=== PATIENT | female | born 1975 | race Caucasian/White ===

== ENCOUNTER 2020-01-03 12:35 | Outpatient (CLI) | payer BC, SELFPAY ==
--- NOTE | 2020-01-03 | MR_ITS ---
WS: [id number] MRI BRAIN WITH HIGH-RESOLUTION IMAGING THROUGH THE INTERNAL AUDITORY CANALS WITHOUT AND WITH CONTRAST HISTORY: OTHER ALLERGIC RHINITIS, ANOSMIA, HEADACHE COMPARISON: None available. TECHNIQUE: Multiplanar, multisequence imaging is performed through the brain. Additional 3 mm imaging performed in multiple planes through the internal auditory canal. Postcontrast imaging with ml's of Prohance. No acute intracranial hemorrhage, midline shift, edema or mass effect. Ventricles and extra-axial spaces are normal. No inferior displacement of cerebellar tonsils. Clivus and pituitary gland are normal. Internal and external auditory canals: Unremarkable. Cranial nerves VII and VIII complexes: Unremarkable. No enhancement or mass. Cerebellopontine angles: Normal. Paranasal sinuses: Mild mucoperiosteal thickening RIGHT maxillary sinus. Mild LEFT septal deviation. Mastoid air cells: Normal. Calvarium and scalp: Normal. Visualized lower brule of Edwards and dural venous sinuses demonstrate no abnormality. MR/MR iac's wo/w con* [id number] IMPRESSION: 1. Normal internal auditory canals. 2. Mild RIGHT maxillary sinusitis.
== END 2020-01-03 12:36 | disposition home or self-care (01) ==
LOC: RADSHAW 12:37
PROVIDERS: PCP Nurse Practitioner; Visit Provider Specialist
DX: J30.89 Other allergic rhinitis (principal); R43.0 Anosmia; R51.9 Headache, unspecified; J32.0 Chronic maxillary sinusitis
CPT/HCPCS: 70553; A9579

== ENCOUNTER 2022-06-13 15:17 | Outpatient (CLI) | payer BC, SELFPAY ==
--- NOTE | 2022-06-13 15:27 | MM_ITS ---
WS: [id number] BILATERAL SCREENING DIGITAL TOMOSYNTHESIS MAMMOGRAM WITH CAD HISTORY: SCREEN COMPARISON: None available. Bilateral CC and MLO views with tomosynthesis and synthetic mammography submitted. Computer aided det ection analyzed. Limited evaluation due to difficulty obtaining lateral projections of each breast. Breast composition: There are scattered areas of fibroglandular density. No suspicious masses, microc alcifications or architectural distortion. Benign calcifications RIGHT breast. MM/[place] [id number] IMPRESSION: BI-RADS: 2-Benign FOLLOW UP: 1 Year Follow-up
== END 2022-06-13 15:18 | disposition home or self-care (01) ==
LOC: RAD 15:21
PROVIDERS: PCP Nurse Practitioner Family; Visit Provider Nurse Practitioner Family
DX: Z12.31 Encounter for screening mammogram for malignant neoplasm of breast (principal)
CPT/HCPCS: 77063; 77067

== ENCOUNTER 2023-06-16 15:29 | Outpatient (CLI) | payer BC, SELFPAY ==
--- NOTE | 2023-06-16 15:48 | US_ITS ---
WS: [id number] US pelv w/transvag [id number] HISTORY: PELVIC PAIN AND HEAVY MENSES COMPARISON: 03/09/2013 Uterus: 11.0 cm x 7.0 cm x 5.0 cm. Mildly enlarged anteverted uterus. No fibroid or mass identified. Several small nabothian cysts withi n the cervix. Endometrium: 0.9 cm. Normal size endometrium. No mass identified. Right ovary: 4.4 cm x 4.2 cm x 1.6 cm. RIGHT ovary is slightly enlarged. There is a small follicle as sociated with the ovary. Left ovary: 3.8 cm x 2.6 cm x 3.3 cm. Normal size and vascularity, no cystic or solid masses. No free fluid in the cul-de-sac. IMPRESSION: 1. Normal size endometrium. No mass or abnormality identified by ultrasound. 2. Mildly enlarged uterus. No fibroid.
== END 2023-06-16 15:30 | disposition home or self-care (01) ==
LOC: RAD 15:30
PROVIDERS: PCP Nurse Practitioner Family; Visit Provider Nurse Practitioner Family
DX: R10.2 Pelvic and perineal pain (principal); N92.0 Excessive and frequent menstruation with regular cycle; N85.2 Hypertrophy of uterus
CPT/HCPCS: 76830; 76856

== ENCOUNTER 2023-06-17 13:53 | Outpatient (CLI) | payer BC, SELFPAY ==
--- NOTE | 2023-06-17 13:57 | MM_ITS ---
WS: [id number] BILATERAL 3D TOMOSYNTHESIS DIGITAL SCREENING MAMMOGRAPHY WITH CAD CLINICAL INFORMATION: SCREENING HISTORY: Screening mammogram. No current complaints. COMPARISON: 2022 TECHNIQUE: Bilateral CC and MLO views. FINDINGS: Scattered fibroglandular densities bilaterally. No suspicious focal mass, asymmetry, calcifications, or architectural distortion. No evidence of malignancy. Incidental punctate and lucent centered calci fications. IMPRESSION: MM/[place] [id number] BI-RADS: 2-Benign FOLLOW UP: 1 Year Follow-up Recommend return to annual screening mammography.
== END 2023-06-17 13:54 | disposition home or self-care (01) ==
LOC: RAD 13:53
PROVIDERS: PCP Nurse Practitioner Family; Visit Provider Nurse Practitioner Family
DX: Z12.31 Encounter for screening mammogram for malignant neoplasm of breast (principal)
CPT/HCPCS: 77063; 77067

== ENCOUNTER 2023-07-29 10:02 | Day surgery (SDC) | payer BC, SELFPAY ==
[2023-07-29 10:27] VITALS: BP 143/64; PULSE 78; RESP 18; TEMP 36.2; O2SAT 94; BMI 40.2
[2023-07-29 10:37] LABS: OR HCG Qualitative Urine Negative (Negative)
[2023-07-29] MEDS: sodium chloride 0.9% 1,000 ML 30 ML IV (10:45)
--- NOTE | 2023-07-29 11:37 | PM.HP ---
Providers/Chief Complaint Primary Care Provider: AVNI Sharma Chief Complaint: Z12.11 History of Present Illness Cinthia Tejada is a 47 year old female Review of Systems General: Reports: 10 or more systems reviewed and unremarkable except in HPI and below Medications/Allergies Home Medications Medication Instructions Recorded Confirmed Last Taken Type levothyroxine 125 mcg capsule 125 mcg PO DAILY 05/18/19 07/29/23 07/29/23 History metoprolol succinate 50 mg 50 mg PO DAILY 05/18/19 07/29/23 07/29/23 History tablet,extended release 24 hr paroxetine HCl 40 mg tablet 40 mg PO DAILY 05/18/19 07/29/23 07/27/23 History atorvastatin 10 mg tablet 10 mg PO DAILY 04/26/22 07/29/23 07/27/23 History clobetasol 0.05 % topical ointment 1 applic topical BID 2 weeks #60 04/26/22 07/29/23 07/26/23 Rx grams hydroxyzine HCl 25 mg tablet 25 mg PO BID PRN Anxiety 04/26/22 07/29/23 Unknown History black cohosh 540 mg capsule 540 mg PO DAILY 07/27/23 07/29/23 07/27/23 History eobbpvst-kda-nkkl-FA-Ca carb-vit K 1 tab PO DAILY 07/27/23 07/29/23 07/29/23 History 18 mg iron-400 mcg-500 mg tablet (One-A-Day Womens Formula) turmeric 400 mg capsule 500 mg PO DAILY 07/27/23 07/29/23 07/27/23 History Allergies Allergy/AdvReac Type Severity Reaction Status Date / Time No Known Allergies Allergy Verified 07/29/23 10:25 PFSH Acute PFSH: Medical History (Updated 07/29/23 @ 11:38 by Chuck Odom DO) History of colon polyps Family History (Updated 07/08/23 @ 14:43 by Celina Aaron LPN) Father Diabetes Grandmother Ovarian cancer Denies family history of Colon cancer Prostate cancer Heart disease Hypercholesteremia Breast cancer Hypertension Uterine cancer Thyroid disease Stroke Social History (Updated 07/08/23 @ 09:49 by Celina Aaron LPN) Smoking and tobacco/nicotine status: never used tobacco/nicotine Alcohol intake: current Alcohol intake frequency: holidays/special occasions only Substance/Drug Use: never Female Reproductive History: Date of last menstrual period: 07/20/23 Vitals/I&O/Wt Last Vital Signs Temp 97.1 F L 07/29/23 10:27 Pulse 78 07/29/23 10:27 Resp 18 07/29/23 10:27 BP 143/64 07/29/23 10:27 Pulse Ox 94 07/29/23 10:27 O2 Del Method Room Air 07/29/23 10:27 Weight last 48 hrs Weight 242 lb A&P Assessment and plan (1) Colon cancer screening: Plan Colonoscopy Attestations Medical Necessity Statement*: Home Coding Level of Care Code Acute Code for Chg Fwd Diagnoses Colon cancer screening Z12.11
--- NOTE | 2023-07-29 11:46 | P.ANESASSM_ITS ---
Pre-Anesthetic Assessment Height/Weight: Height 1.65 m Weight 109.769 kg Temp Pulse Resp BP Pulse Ox O2 Del Method 97.1 F L 78 18 143/64 94 Room Air 07/29/23 10:27 07/29/23 10:27 07/29/23 10:27 07/29/23 10:27 07/29/23 10:27 07/29/23 10:27 Preop Diagnosis: screening Operation Date: 07/29/23 11:30 Proposed Procedures p Colonoscopy(Not Applicable) - Chuck Odom DO Familial anesthetic complications: none Last intake: Intake Last Liquid Date 07/28/23 Last Liquid Time 22:30 Last Solid Date 07/27/23 Last Solid Time 18:00 Social Alcohol (occasionally) and No tobacco Exam alert, oriented x 3, clear to auscultation bilaterally and regular rate & rhythm Airway Submandibular: within normal limits Cervical ROM: within normal limits Mallampati: Class III Dentition: false (upper and lower) Pulmonary None reported CV/HEM Palpitations None reported Hepatic chronic elevated liver enzymes per patient no diagnosis. GI Gastroesophageal Reflux Disease Metabolic Diabetes Mellitus (borderline diet controlled), Hyperlipidemia and Thyroid Disease [facility] [place] None reported Neuropsych Anxiety Anesthetic Plan ASA status: 2 Anesthesia: MAC Medications/Allergies Home Medications Medication Instructions Recorded Confirmed Last Taken Type levothyroxine 125 mcg capsule 125 mcg PO DAILY 05/18/19 07/29/23 07/29/23 History metoprolol succinate 50 mg 50 mg PO DAILY 05/18/19 07/29/23 07/29/23 History tablet,extended release 24 hr paroxetine HCl 40 mg tablet 40 mg PO DAILY 05/18/19 07/29/23 07/27/23 History atorvastatin 10 mg tablet 10 mg PO DAILY 04/26/22 07/29/23 07/27/23 History clobetasol 0.05 % topical ointment 1 applic topical BID 2 weeks #60 04/26/22 07/29/23 07/26/23 Rx grams hydroxyzine HCl 25 mg tablet 25 mg PO BID PRN Anxiety 04/26/22 07/29/23 Unknown History black cohosh 540 mg capsule 540 mg PO DAILY 07/27/23 07/29/23 07/27/23 History efdkwpfb-jho-rhqz-FA-Ca carb-vit K 1 tab PO DAILY 07/27/23 07/29/23 07/29/23 History 18 mg iron-400 mcg-500 mg tablet (One-A-Day Womens Formula) turmeric 400 mg capsule 500 mg PO DAILY 07/27/23 07/29/23 07/27/23 History Allergies Allergy/AdvReac Type Severity Reaction Status Date / Time No Known Allergies Allergy Verified 07/29/23 10:25 Current Medications Generic Name Dose Route Start Last Admin Trade Name Freq PRN Reason Stop Dose Admin Sodium Chloride 1,000 mls @ 30 mls/hr 07/29/23 10:30 07/29/23 10:45 Sodium Chloride 0.9% IV 07/30/23 10:29 30 mls/hr .Q24H ARUNA Administration PFSH Anesthesia Medical History (Updated 07/29/23 @ 11:38 by Chuck Odom DO) History of colon polyps Family History (Updated 07/08/23 @ 14:43 by Celina Aaron LPN) Father Diabetes Grandmother Ovarian cancer Denies family history of Colon cancer Prostate cancer Heart disease Hypercholesteremia Breast cancer Hypertension Uterine cancer Thyroid disease Stroke Social History (Updated 07/08/23 @ 09:49 by Celina Aaron LPN) Smoking and tobacco/nicotine status: never used tobacco/nicotine Alcohol intake: current Alcohol intake frequency: holidays/special occasions only Substance/Drug Use: never Female Reproductive History Date of last menstrual period: 07/20/23 Data Anesthesia Cardiac Studies: 2 No Data to Display
[2023-07-29 12:18] VITALS: BP 106/60; PULSE 70; RESP 14; TEMP 36.5; O2SAT 98
[2023-07-29 12:33] VITALS: BP 116/75; PULSE 78; RESP 18; O2SAT 96
--- NOTE | 2023-07-29 12:50 | ANE.PACU2 ---
Inpatient post-anesthesia follow up: Airway intact: Yes Vital signs: Temperature 97.7 F Pulse Rate 78 Respiratory Rate 18 Blood Pressure 116/75 Pulse Oximetry 96 Oxygen Delivery Me thod Room Air Oxygen Flow Rate 2 Fraction of Inspir ed Oxygen Hydration adequate: Yes Nausea and vomiting: No Pain level: 1 Mental status: Baseline
== END 2023-07-29 12:50 | disposition home or self-care (01) ==
PROVIDERS: Anesthesiology; PCP Nurse Practitioner Family; Visit Provider Surgery
PROC: 0DJD8ZZ Inspection of Lower Intestinal Tract, Via Natural or Artificial Opening Endoscopic (ICD-10-PCS; CPT 45378; principal; 2023-07-29 11:30)
DX: Z12.11 Encounter for screening for malignant neoplasm of colon (principal); K64.8 Other hemorrhoids
CPT/HCPCS: 45378; 81025; J2704; J7030

== ENCOUNTER 2023-08-12 07:56 | Outpatient (CLI) | payer BC, SELFPAY ==
[2023-08-12 08:49] LABS: Alanine Aminotransferase 92 U/L (0-33); Albumin Level 4.7 g/dL (3.5-5.2); Alkaline Phosphatase 99 U/L (35-105); Aspartate Amino Transferase 71 U/L (0-32); Blood Urea Nitrogen 9 mg/dL (6-20); Calcium 9.9 mg/dL (8.5-10.5); Carbon Dioxide 26 mmol/L (22-29); Chloride 103 mmol/L (98-107); Globulin 2.6 g/dL (1.3-4.6); Glomerular Filtration Rate 133.4 mL/min (90-130); Glucose 122 mg/dL (65-115); Osmolality Calculated 288 mOsm/kg (285-295); Sodium 139 mmol/L (136-145); Total Bilirubin 0.7 mg/dL (0.15-1.2); Total Protein 7.3 g/dL (6.6-8.7)
[2023-08-12 08:50] LABS: Calcium 10.1 mg/dL (8.5-10.5); Parathyroid Hormone 124.4 pg/mL (15-65)
[2023-08-12 10:16] LABS: Cortisol Random 0.82 ug/dL (2.47-19.5)
[2023-08-12 10:57] LABS: Free T4 Free Thyroxine 1.14 ng/dL (0.82-1.77)
== END 2023-08-12 07:57 | disposition home or self-care (01) ==
LOC: LAB 07:58
PROVIDERS: PCP Nurse Practitioner Family; Visit Provider Internal Medicine
DX: R79.89 Other specified abnormal findings of blood chemistry (principal); E55.9 Vitamin D deficiency, unspecified; E03.9 Hypothyroidism, unspecified
CPT/HCPCS: 36415; 80053; 82310; 82533; 83970; 84439; 84443

== ENCOUNTER 2023-08-13 06:44 | Day surgery (SDC) | payer BC, SELFPAY ==
--- NOTE | 2023-08-12 13:55 | W.PM.OPSFHP ---
Same Day Surgery H&P Indication for Procedure/HPI DATE OF PROCEDURE: August 13, 2023 CHIEF COMPLAINT/INDICATIONFOR SURGICAL PROCEDURE: abnormal uterine bleeding PREOP DIAGNOSIS: abnormal uterine bleeding PLANNED PROCEDURE: Operation Date: 08/13/23 09:45 Proposed Procedures p Hysteroscopy Hysteroscopy w/ Endometrial Sampling 62146, N93.9(Not Applicable) - Harman Tapia MD s Poylpectomy(Not Applicable) - Harman Tapia MD 47 y.o. with abnormal uterine bleeding Medications/Allergies* Home Medications Medication Instructions Recorded Confirmed Type levothyroxine 125 mcg capsule 125 mcg PO DAILY 05/18/19 08/12/23 History metoprolol succinate 50 mg 50 mg PO DAILY 05/18/19 08/12/23 History tablet,extended release 24 hr paroxetine HCl 40 mg tablet 40 mg PO DAILY 05/18/19 08/12/23 History atorvastatin 10 mg tablet 10 mg PO DAILY 04/26/22 08/12/23 History hydroxyzine HCl 25 mg tablet 25 mg PO BID PRN Anxiety 04/26/22 08/12/23 History xuceoccr-qka-elnp-FA-Ca carb-vit K 1 tab PO DAILY 07/27/23 08/12/23 History 18 mg iron-400 mcg-500 mg tablet (One-A-Day Womens Formula) cetirizine 10 mg capsule (Zyrtec) 10 mg PO DAILY 08/05/23 08/12/23 History Allergies/Adverse Reactions Allergy/AdvReac Type Severity Reaction Status Date / Time No Known Allergies Allergy Verified 08/05/23 08:16 Pertinent History/Comorbid Conditions* Medical History (Updated 08/05/23 @ 08:42 by Yossi Figueroa MD) History of colon polyps Family History (Updated 07/08/23 @ 14:43 by Celina Aaron LPN) Ovarian cancer Grandmother Diabetes Father Denies family history of Colon cancer Prostate cancer Heart disease Hypercholesteremia Breast cancer Hypertension Uterine cancer Thyroid disease Stroke Social History Smoking and tobacco/nicotine status: never used tobacco/nicotine Alcohol intake: current Alcohol intake frequency: holidays/special occasions only Substance/Drug Use: never Pertinent Exam Findings alert, oriented x 3, clear to auscultation bilaterally and regular rate & rhythm Recommendations Surgery/Procedure today Coding Level of Care Code Acute Code for Chg Fwd Time Spent (min) 20
[2023-08-13] VITALS (9 sets, daily range): BP systolic 112–135; BP diastolic 67–96; PULSE 62–90; RESP 16–20; TEMP 36.2–36.8; O2SAT 95–97; BMI 40.2
--- NOTE | 2023-08-13 08:10 | W.PM.OPSUD ---
Surgery/Procedure H&P Update DATE OF PROCEDURE: August 13, 2023 DATE H&P PERFORMED: 08/12/23 H&P UPDATE INFORMATION: I have reviewed H&P completed within last 30 days, I have examined patient prior to procedure and No changes to prior documentation PREOP DIAGNOSIS: abnormal uterine bleeding PLANNED PROCEDURE: Operation Date: 08/13/23 08:25 Proposed Procedures p Hysteroscopy Hysteroscopy w/ Endometrial Sampling 55171, N93.9(Not Applicable) - Harman Tapia MD s Poylpectomy(Not Applicable) - Harman Tapia MD
[2023-08-13 08:18] LABS: OR HCG Qualitative Urine Negative (Negative)
[2023-08-13 08:41] LABS: Glucose Point of Care 95 mg/dL (70-110)
[2023-08-13] MEDS: sodium chloride 0.9% 1,000 ML 30 ML IV (08:44)
--- NOTE | 2023-08-13 08:46 | P.ANESASSM_ITS ---
Pre-Anesthetic Assessment Height/Weight: Height 1.65 m Weight 109.769 kg O2 Del Method Room Air 08/13/23 08:23 Preop Diagnosis: abnormal uterine bleeding Operation Date: 08/13/23 08:25 Proposed Procedures p Hysteroscopy Hysteroscopy w/ Endometrial Sampling 02829, N93.9(Not Applicable) - Harman Tapia MD s Poylpectomy(Not Applicable) - Harman Tapia MD Familial anesthetic complications: None Was Beta Annie taken within 24 hours: N/A Was Clonidine taken within 24 hours: N/A Last intake: Intake Last Liquid Date 08/12/23 Last Liquid Time 20:30 Last Solid Date 08/12/23 Last Solid Time 17:00 Social No alcohol and No tobacco Exam alert, oriented x 3, clear to auscultation bilaterally and regular rate & rhythm Airway Mallampati: Class I Dentition: false CV/HEM Palpitations Metabolic Diabetes Mellitus, Hyperlipidemia, Morbid Obesity and Thyroid Disease Anesthetic Plan ASA status: 3 Anesthesia: General Risk of > 500 ml blood loss (7ml/kg in children): No Medications/Allergies Home Medications Medication Instructions Recorded Confirmed Last Taken Type levothyroxine 125 mcg capsule 125 mcg PO DAILY 05/18/19 08/12/23 08/13/23 History metoprolol succinate 50 mg 50 mg PO DAILY 05/18/19 08/12/23 08/13/23 History tablet,extended release 24 hr paroxetine HCl 40 mg tablet 40 mg PO DAILY 05/18/19 08/12/23 08/12/23 History atorvastatin 10 mg tablet 10 mg PO DAILY 04/26/22 08/12/23 08/12/23 History clobetasol 0.05 % topical ointment 1 applic topical BID 2 weeks #60 04/26/22 08/12/23 08/12/23 Rx grams hydroxyzine HCl 25 mg tablet 25 mg PO BID PRN Anxiety 04/26/22 08/12/23 Unknown History lzsrqvxe-nyq-azav-FA-Ca carb-vit K 1 tab PO DAILY 07/27/23 08/12/23 07/29/23 Hi story 18 mg iron-400 mcg-500 mg tablet (One-A-Day Womens Formula) cetirizine 10 mg capsule (Zyrtec) 10 mg PO DAILY 08/05/23 08/12/23 08/13/23 History liraglutide 0.6 mg/0.1 mL (18 mg/3 See Rx Instructions SUBCUT 08/05/23 08/12/23 Unknown Rx mL) subcutaneous pen injector .COMPLEX #9 mL (Victoza 3-Calvin) Allergies Allergy/AdvReac Type Severity Reaction Status Date / Time No Known Allergies Allergy Verified 08/05/23 08:16 Current Medications Generic Name Dose Route Start Last Admin Trade Name Freq PRN Reason Stop Dose Admin Sodium Chloride 1,000 mls @ 30 mls/hr 08/13/23 07:00 08/13/23 08:44 Sodium Chloride 0.9% IV 08/14/23 06:59 30 mls/hr .Q24H ARUNA Administration PFSH Anesthesia Medical History History of colon polyps Family History Father Diabetes Grandmother Ovarian cancer Denies family history of Colon cancer Prostate cancer Heart disease Hypercholesteremia Breast cancer Hypertension Uterine cancer Thyroid disease Stroke Social History Smoking and tobacco/nicotine status: never used tobacco/nicotine Alcohol intake: current Alcohol intake frequency: holidays/special occasions only Substance/Drug Use: never Female Reproductive History Date of last menstrual period: 07/22/23 Data Anesthesia Cardiac Studies: No Data to Display
--- NOTE | 2023-08-13 09:45 | PM.OP ---
Operative Report Date of procedure: August 13, 2023 Pre-op diagnosis: abnormal uterine bleeding Post-op diagnosis: same Post-op findings: normal endometrial cavity No polyps / fibroids Small amount of endometrial tissue Procedure done: hysteroscopy curettage of uterus Implants: none Specimens removed/disposition: endometrial curettings, sent to pathology Surgeon: Harman Tapia MD Anesthesia: MAC Estimated blood loss (mL): 0 Complications: none Findings: see above Condition: stable Disposition: PACU Brief History: 47 y.o. with abnormal uterine bleeding Procedure: Informed consent signed. Patient was taken to the operating room. Anesthesia was induced. Patient was placed in dorsolithotomy position, prepped and draped for hysteroscopy. A bivalve speculum was placed in the vagina. The anterior lip of the cervix was grasped with a sharp-toothed tenaculum. The cervix was serially dilated with Hegar dilators. . A hysteroscope was placed into the endometrial cavity. The endometrial cavity was seen to be normal. There were no polyps or fibroids. There was a small amount of endometrial tissue. The hysteroscope was then removed. Endometrial curettage was done with a sharp curette. Endometrial tissue was sent to pathology. The sharp-toothed tenaculum was removed. There was no bleeding from the endometrial cavity or cervix. The patient was then placed supine and awakened and taken to the PACU. Postop condition: stable EBL: none Sponge and instruments counts were normal x 2 Complications: none
== END 2023-08-13 11:14 | disposition home or self-care (01) ==
PROVIDERS: PCP Nurse Practitioner Family; Visit Provider Obstetrics & Gynecology
PROC: 0UJD8ZZ Inspection of Uterus and Cervix, Via Natural or Artificial Opening Endoscopic (ICD-10-PCS; CPT 58555; principal; 2023-08-13 08:15)
DX: N93.9 Abnormal uterine and vaginal bleeding, unspecified (principal); E11.9 Type 2 diabetes mellitus without complications; E78.5 Hyperlipidemia, unspecified; E66.01 Morbid (severe) obesity due to excess calories; Z68.41 Body mass index [BMI] 40.0-44.9, adult
CPT/HCPCS: 58558; 36416; 81025; 82962; 88305; J1100; J1200; J2250; J2405; J2704; J3010; J7030

== ENCOUNTER 2023-10-30 06:01 | Outpatient (CLI) | payer BC, SELFPAY ==
[2023-10-30 06:58] LABS: Calcium 9.9 mg/dL (8.5-10.5)
[2023-10-30 07:04] LABS: Parathyroid Hormone 112.1 pg/mL (15-65)
[2023-10-30 07:05] LABS: Alanine Aminotransferase 90 U/L (0-33); Albumin Level 4.4 g/dL (3.5-5.2); Alkaline Phosphatase 94 U/L (35-105); Anion Gap 14.3 (5-19); Aspartate Amino Transferase 50 U/L (0-32); Blood Urea Nitrogen 12 mg/dL (6-20); Calcium 9.7 mg/dL (8.5-10.5); Carbon Dioxide 25 mmol/L (22-29); Chloride 105 mmol/L (98-107); Free T4 Free Thyroxine 1.15 ng/dL (0.82-1.77); Globulin 2.1 g/dL (1.3-4.6); Glomerular Filtration Rate 133.4 mL/min (90-130); Glucose 115 mg/dL (65-115); Osmolality Calculated 291 mOsm/kg (285-295); Potassium 4.3 mmol/L (3.5-5.1); Sodium 140 mmol/L (136-145); Thyroid Stimulating Hormone 2.07 uIU/mL (0.27-4.20); Total Bilirubin 0.7 mg/dL (0.15-1.2); Total Protein 6.5 g/dL (6.6-8.7)
[2023-10-30 07:47] LABS: 25 Hydroxy Vitamin D 23 ng/mL (30-100)
== END 2023-10-30 06:02 | disposition home or self-care (01) ==
PROVIDERS: PCP Nurse Practitioner Family; Visit Provider Internal Medicine
DX: R79.89 Other specified abnormal findings of blood chemistry (principal); E55.9 Vitamin D deficiency, unspecified; E03.9 Hypothyroidism, unspecified
CPT/HCPCS: 36415; 80053; 82306; 82310; 83970; 84439; 84443

== ENCOUNTER 2023-12-29 06:10 | Outpatient (CLI) | payer BC, SELFPAY ==
[2023-12-29 07:36] LABS: Calcium 9.8 mg/dL (8.5-10.5); Estmated Average Glucose 105; Hemoglobin A1C 5.3 % (4.0-6.0)
[2023-12-29 07:37] LABS: Creatinine Urine, Random 264 mg/dL (28-217); Microalbum Creatinine Ratio Ur 11 mg/dL (0-20); Microalbumin Random Urine 3 ug/dL (0-20)
[2023-12-29 07:47] LABS: Alanine Aminotransferase 76 U/L (0-33); Albumin Level 4.2 g/dL (3.5-5.2); Alkaline Phosphatase 93 U/L (35-105); Aspartate Amino Transferase 41 U/L (0-32); Blood Urea Nitrogen 11 mg/dL (6-20); Calcium 9.5 mg/dL (8.5-10.5); Carbon Dioxide 24 mmol/L (22-29); Chloride 104 mmol/L (98-107); Chol HDL Ratio 5.09 mg/dL (0.0-4.40); Cholesterol 239 mg/dL (0-200); Free T4 Free Thyroxine 0.99 ng/dL (0.82-1.77); Globulin 1.9 g/dL (1.3-4.6); Glomerular Filtration Rate 107.6 mL/min (90-130); Glucose 88 mg/dL (65-115); HDL Cholesterol 47 mg/dL (60-100); LDL Cholesterol Calculated 125 mg/dL (50-129); LDL HDL Ratio 2.66 RATIO (0.00-3.22); Osmolality Calculated 285 mOsm/kg (285-295); Sodium 138 mmol/L (136-145); Thyroid Stimulating Hormone 3.49 uIU/mL (0.27-4.20); Total Bilirubin 0.4 mg/dL (0.15-1.2); Total Protein 6.1 g/dL (6.6-8.7); Triglycerides 337 mg/dL (0-150)
[2023-12-29 08:24] LABS: Anion Gap 14.3 (5-19); Potassium 4.3 mmol/L (3.5-5.1)
[2023-12-29 08:45] LABS: Parathyroid Hormone 95.5 pg/mL (15-65)
[2023-12-29 08:54] LABS: 25 Hydroxy Vitamin D 38 ng/mL (30-100)
== END 2023-12-29 06:11 | disposition home or self-care (01) ==
LOC: LAB 06:11
PROVIDERS: PCP Nurse Practitioner Family; Visit Provider Internal Medicine
DX: R73.03 Prediabetes (principal); R79.89 Other specified abnormal findings of blood chemistry; E55.9 Vitamin D deficiency, unspecified; E03.9 Hypothyroidism, unspecified
CPT/HCPCS: 36415; 80053; 80061; 82044; 82306; 82310; 83036; 83970; 84439; 84443

== ENCOUNTER 2024-05-31 08:00 | Outpatient (CLI) | payer BC, SELFPAY ==
[2024-05-31 08:30] LABS: HF Add Manual Diff No
[2024-05-31 08:32] LABS: Basophils % 0.2 %; Hematocrit 47.5 % (36-47); Lymphocytes # 1.7 10^3/uL (0.8-4.8); Lymphocytes % 31.4 %; Mean Corpuscular HGB Conc 33.3 g/dL (30-55); Mean Corpuscular Hemoglobin 28.9 pg (27-33); Mean Corpuscular Volume 86.8 fl (85-98); Mean Platelet Volume 11.2 fL (7.4-10.4); Monocytes # 0.4 10^3/uL (0.2-0.9); Neutrophils # 3.25 10^3/uL (1.8-7.7); Neutrophils % 60.2 %; Nucleated Red Blood Cells % 0 %; Platelet Count 153 10^3/cmm (157-399); Red Blood Count 5.47 10^6/uL (3.85-5.65); Red Cell Distribution Width 12.3 % (12.1-15.1); White Blood Count 5.39 10^3/uL (3.29-11.43)
[2024-05-31 08:44] LABS: Estmated Average Glucose 103; Hemoglobin A1C 5.2 % (4.0-6.0)
[2024-05-31 09:02] LABS: Creatinine Urine, Random 254 mg/dL (28-217); Microalbum Creatinine Ratio Ur 24 mg/dL (0-20); Microalbumin Random Urine 6 ug/dL (0-20)
[2024-05-31 09:06] LABS: Calcium 10.2 mg/dL (8.5-10.5); Free T4 Free Thyroxine 1.08 ng/dL (0.82-1.77); Parathyroid Hormone 97.5 pg/mL (15-65)
[2024-05-31 09:16] LABS: 25 Hydroxy Vitamin D 48 ng/mL (30-100); Alanine Aminotransferase 46 U/L (0-33); Albumin Level 4.5 g/dL (3.5-5.2); Alkaline Phosphatase 93 U/L (35-105); Anion Gap 12.3 (5-19); Aspartate Amino Transferase 31 U/L (0-32); Blood Urea Nitrogen 10 mg/dL (6-20); Calcium 10.2 mg/dL (8.5-10.5); Carbon Dioxide 27 mmol/L (22-29); Chloride 105 mmol/L (98-107); Chol HDL Ratio 4.82 mg/dL (0.0-4.40); Cholesterol 294 mg/dL (0-200); Globulin 1.8 g/dL (1.3-4.6); Glomerular Filtration Rate 132.8 mL/min (90-130); Glucose 86 mg/dL (65-115); HDL Cholesterol 61 mg/dL (60-100); LDL Cholesterol Calculated 192 mg/dL (50-129); LDL HDL Ratio 3.15 RATIO (0.00-3.22); Osmolality Calculated 288 mOsm/kg (285-295); Potassium 4.3 mmol/L (3.5-5.1); Sodium 140 mmol/L (136-145); Total Bilirubin 0.7 mg/dL (0.15-1.2); Total Protein 6.3 g/dL (6.6-8.7); Triglycerides 204 mg/dL (0-150)
== END 2024-05-31 08:01 | disposition home or self-care (01) ==
PROVIDERS: Absent Provider Internal Medicine; PCP Nurse Practitioner Family; Visit Provider Dermatology
DX: R73.03 Prediabetes (principal); R79.89 Other specified abnormal findings of blood chemistry; E55.9 Vitamin D deficiency, unspecified; E03.9 Hypothyroidism, unspecified; Z01.89 Encounter for other specified special examinations
CPT/HCPCS: 36415; 82044; 82310; 83970; 84439

== ENCOUNTER 2024-08-24 06:09 | Outpatient (CLI) | payer BC, SELFPAY ==
[2024-08-24 08:07] LABS: Free T4 Free Thyroxine 1.31 ng/dL (0.82-1.77)
[2024-08-24 11:30] LABS: Calcium 10.2 mg/dL (8.5-10.5)
== END 2024-08-24 06:10 | disposition home or self-care (01) ==
PROVIDERS: PCP Nurse Practitioner Family; Visit Provider Internal Medicine
DX: E03.9 Hypothyroidism, unspecified (principal); E55.9 Vitamin D deficiency, unspecified; R79.89 Other specified abnormal findings of blood chemistry; R73.03 Prediabetes
CPT/HCPCS: 36415; 82310; 83970; 84439; 84443

== ENCOUNTER 2024-10-25 07:05 | Outpatient (CLI) | payer BC, SELFPAY ==
[2024-10-25 08:41] LABS: Alanine Aminotransferase 53 U/L (0-33); Albumin Level 4.5 g/dL (3.5-5.2); Alkaline Phosphatase 101 U/L (35-105); Anion Gap 15.2 (5-19); Aspartate Amino Transferase 43 U/L (0-32); Blood Urea Nitrogen 12 mg/dL (6-20); Calcium 10.3 mg/dL (8.5-10.5); Carbon Dioxide 24 mmol/L (22-29); Chloride 104 mmol/L (98-107); Cholesterol 335 mg/dL (0-200); Free T4 Free Thyroxine 0.95 ng/dL (0.82-1.77); Globulin 2.4 g/dL (1.3-4.6); Glucose 110 mg/dL (65-115); HDL Cholesterol 64 mg/dL (60-100); Osmolality Calculated 288 mOsm/kg (285-295); Potassium 4.2 mmol/L (3.5-5.1); Sodium 139 mmol/L (136-145); Thyroid Stimulating Hormone 3.63 uIU/mL (0.27-4.20); Total Protein 6.9 g/dL (6.6-8.7); Triglycerides 315 mg/dL (0-150)
[2024-10-25 09:04] LABS: Estmated Average Glucose 114; Hemoglobin A1C 5.6 % (4.0-6.0)
== END 2024-10-25 07:06 | disposition home or self-care (01) ==
PROVIDERS: PCP Nurse Practitioner Family; Visit Provider Internal Medicine
DX: E03.9 Hypothyroidism, unspecified (principal); E55.9 Vitamin D deficiency, unspecified; R79.89 Other specified abnormal findings of blood chemistry; R73.03 Prediabetes
CPT/HCPCS: 36415; 80053; 80061; 82044; 83036; 84439; 84443

== ENCOUNTER 2024-10-29 07:58 | Outpatient (CLI) | payer BC, SELFPAY ==
[2024-10-29 10:49] LABS: Creatinine 24 Hour Urine 1741.5 mg/dL (601-1689); Total Volume Urine 2150 ml
[2024-10-29 11:09] LABS: Calcium 24 Hour Urine 862 mg/24hr (100-300); Total Volume Urine 2150 ml; Urine Calcium Result 40.1 mg/dL
== END 2024-10-29 07:59 | disposition home or self-care (01) ==
LOC: LAB 08:00
PROVIDERS: Internal Medicine; PCP Nurse Practitioner Family; Visit Provider Chiropractor
DX: E03.9 Hypothyroidism, unspecified (principal); E55.9 Vitamin D deficiency, unspecified; R79.89 Other specified abnormal findings of blood chemistry; R73.03 Prediabetes
CPT/HCPCS: 82340; 82570

== ENCOUNTER → 2024-11-01 10:53 | Outpatient (BNVA) | payer BC, SELFPAY | PROVIDERS: PCP Nurse Practitioner Family; Referring Provider Nurse Practitioner Family; Visit Provider Internal Medicine Cardiovascular Disease | DX: R00.0 Tachycardia, unspecified (principal) | CPT/HCPCS: 93005 ==

== ENCOUNTER 2024-11-08 07:31 | Outpatient (CLI) | payer BC, SELFPAY ==
--- NOTE | 2024-11-08 09:00 | NM_ITS ---
WS: [id number] EXAMINATION: NM parathyroid [id number] ORDER DATE: 11/08/2024 7:40 AM COMPARISON: None HISTORY: elevated parathyroid levels TECHNIQUE: Parathyroid scintigraphy with 20.6 mCi of technetium 99m sestamibi administered. AP and oblique views obtained with and without chin and suprasternal notch markers. Initial and 2 hour delayed imaging acquired. FINDINGS: Normal thyroid uptake and washout. Normal salivary gland activity. Retained activity involving an ovoid nodule caudal to the RIGHT inferior thyroid suspicious for parathyroid adenoma. No other suspicious findings. NM/NM parathyroid [id number] IMPRESSION: Suspected parathyroid adenoma just inferior and lateral to the tip of the RIGHT inferior thyroid adjacent to the suprasternal notch
== END 2024-11-08 07:32 | disposition home or self-care (01) ==
PROVIDERS: PCP Nurse Practitioner Family; Visit Provider Internal Medicine
DX: R79.89 Other specified abnormal findings of blood chemistry (principal); E03.9 Hypothyroidism, unspecified; E55.9 Vitamin D deficiency, unspecified
CPT/HCPCS: 78070; A9500

== ENCOUNTER 2024-11-28 06:18 | Outpatient (CLI) | payer BC, SELFPAY | END 2024-11-28 06:19 | disposition home or self-care (01) | LOC: RAD 06:18 | PROVIDERS: PCP Nurse Practitioner Family; Visit Provider Internal Medicine Cardiovascular Disease | DX: I49.3 Ventricular premature depolarization (principal) | CPT/HCPCS: 93306 ==